=== PATIENT | male | born 1955 | race Caucasian/White ===

== ENCOUNTER 2016-07-20 09:06 | Outpatient (RCR) | payer BC | END 2016-10-18 | disposition still patient (30) | LOC: WSC | DX: M50.00 Cervical disc disorder with myelopathy, unspecified cervical region (principal); Z74.09 Other reduced mobility; Z87.828 Personal history of other (healed) physical injury and trauma ==

== ENCOUNTER → 2017-01-05 | Outpatient (CLI) | payer BC | LOC: SUN.DIA 01-04 13:27 | DX: E11.9 Type 2 diabetes mellitus without complications (principal); E78.5 Hyperlipidemia, unspecified; I10 Essential (primary) hypertension; Z68.32 Body mass index [BMI] 32.0-32.9, adult; Z71.3 Dietary counseling and surveillance; Z87.891 Personal history of nicotine dependence | CPT/HCPCS: G0108 ==

== ENCOUNTER → 2017-02-16 | Outpatient (CLI) | payer BC | LOC: SUN.DIA 08:44 | DX: E11.9 Type 2 diabetes mellitus without complications (principal); E78.5 Hyperlipidemia, unspecified; I10 Essential (primary) hypertension; E66.9 Obesity, unspecified; Z68.32 Body mass index [BMI] 32.0-32.9, adult; Z71.3 Dietary counseling and surveillance; Z87.891 Personal history of nicotine dependence | CPT/HCPCS: G0108 ==

== ENCOUNTER → 2017-05-27 | Outpatient (CLI) | payer BC | LOC: SUN.DIA 04-01 13:25 | DX: E11.9 Type 2 diabetes mellitus without complications (principal); E78.5 Hyperlipidemia, unspecified; I10 Essential (primary) hypertension; E66.9 Obesity, unspecified; Z68.32 Body mass index [BMI] 32.0-32.9, adult; Z71.3 Dietary counseling and surveillance; Z87.891 Personal history of nicotine dependence | CPT/HCPCS: G0108 ==

== ENCOUNTER 2017-10-08 16:47 | Outpatient (RCR) | payer BC ==
[~2017-10-08] VITALS: Ht 193 cm; Wt 124.2 kg
[2017-10-08] MEDS ORDERED: CIALIS20 MG PO (17:01)
[2017-10-08] MEDS ORDERED: ZITHROMAX500 M2 PO (17:01)
[2017-10-08] MEDS ORDERED: NORVASC 5MG5 MG/TAB PO (17:01)
[2017-10-08] MEDS ORDERED: FLONASEALLERGY NS (17:02)
[2017-10-08] MEDS ORDERED: COZAAR100 MG PO (17:02)
[2017-10-08] MEDS ORDERED: ZYRTEC 10MG10 MG PO (17:02)
[2017-10-08] MEDS ORDERED: TOPROL XL 50MG50 MG PO (17:06)
[2017-10-08] MEDS ORDERED: GLUCOSAMINE MSM1 TAB PO (17:06)
[2017-10-08] MEDS ORDERED: GLUCOPHAGE XR500 M1 PO (17:06)
[2017-10-08] MEDS ORDERED: TRULICITY1.5 MG/0.5 SQ (17:07)
[2017-10-08] MEDS ORDERED: DEPO-TESTOS100 MG/ML IM (17:07)
[2017-10-08 17:17] VITALS: BP 140/71; PULSE 93; TEMP 98.8
== END 2017-10-08 17:18 | disposition home or self-care (01) ==
LOC: EUO 16:47
DX: J84.89 Other specified interstitial pulmonary diseases (principal)
CPT/HCPCS: J0696

== ENCOUNTER 2018-12-02 11:15 | Outpatient (RCR) | payer BC ==
[~2018-12-02 11:15] MED LIST: CIALIS20 MG PO; COZAAR100 MG PO; DEPO-TESTOS100 MG/ML IM; FLONASEALLERGY NS; GLUCOPHAGE XR500 M1 PO; GLUCOSAMINE MSM1 TAB PO; NORVASC 5MG5 MG/TAB PO; TOPROL XL 50MG50 MG PO; TRULICITY1.5 MG/0.5 SQ; ZITHROMAX500 M2 PO; ZYRTEC 10MG10 MG PO
== END 2018-12-05 15:28 | disposition home or self-care (01) ==
LOC: MKS.ESL.PT 11:15
DX: M51.37 Other intervertebral disc degeneration, lumbosacral region (principal)

== ENCOUNTER → 2018-12-29 | Outpatient (CLI) | payer BC | LOC: COL.RAD 07:24 | DX: L03.116 Cellulitis of left lower limb (principal) ==

== ENCOUNTER → 2019-08-10 | Outpatient (CLI) | payer BC ==
[~2019-08-10] MED LIST changes: +BASAGLAR K100 UNIT/1 SQ; +CLARITIN 1010 MG/TAB PO; +GLUCOPHAGE1000 MG PO; +GLUCOSAMINE & C1 CA2 PO; +IBU600 MG PO; +LOZOL 2.5M2.5 MG/TAB PO; +NORCO 325 MG-7.1 TAB PO; +NOVOLOG 100U100 U/M1 SQ
== END ==
LOC: DIA.ED 10:15
DX: E11.40 Type 2 diabetes mellitus with diabetic neuropathy, unspecified (principal); E66.8 Other obesity; Z79.84 Long term (current) use of oral hypoglycemic drugs; I10 Essential (primary) hypertension; E78.5 Hyperlipidemia, unspecified
CPT/HCPCS: G0108

== ENCOUNTER → 2019-08-17 | Outpatient (CLI) | payer BC | LOC: DIA.ED 08:14 | DX: E11.9 Type 2 diabetes mellitus without complications (principal) | CPT/HCPCS: G0108 ==

== ENCOUNTER → 2019-09-13 | Outpatient (CLI) | payer BC ==
[~2019-09-13] VITALS: Ht 193 cm; Wt 129.4 kg
[2019-09-13 13:47] VITALS: BP 161/88; PULSE 54
[2019-09-13 14:45] VITALS: BP 138/90; PULSE 76
== END ==
LOC: COL.RAD 13:00
DX: M51.36 Other intervertebral disc degeneration, lumbar region (principal); M51.27 Other intervertebral disc displacement, lumbosacral region; Z87.39 Personal history of other diseases of the musculoskeletal system and connective tissue
CPT/HCPCS: J3301

== ENCOUNTER → 2019-12-06 | Outpatient (CLI) | payer MEDICARE, OTHER ==
[~2019-12-06] VITALS: Ht 193 cm; Wt 117.0 kg
[~2019-12-06] MED LIST changes: +ELIQUIS 5MG PO
[2019-12-06 13:20] VITALS: BP 117/83; PULSE 50
[2019-12-06 14:25] VITALS: BP 110/67; PULSE 69
== END ==
LOC: COL.RAD 12:19
DX: M54.16 Radiculopathy, lumbar region (principal)
CPT/HCPCS: J3301

== ENCOUNTER 2020-01-02 07:01 | Day surgery (SDC) | payer MEDICARE, OTHER ==
[2020-01-02] VITALS (7 sets, daily range): BP systolic 100–110; BP diastolic 60–75; PULSE 60–77; TEMP 99
[~2020-01-02] VITALS: Ht 193 cm; Wt 114.7 kg
[2020-01-02 08:25] LABS: HEMATOCRIT 42.9 % (42.0-52.0); HEMOGLOBIN 14.7 g/dl (13.5-18.0); MEAN CELL VOLUME 80 fl (80.0-100.0); MEAN CORPUSCULAR HEMOGLOBIN 27 pg (27.0-31.0); MEAN CORPUSCULAR HGB CONC 34 g/dl (33.0-37.0); MEAN PLATELET VOLUME 9.4 fl (7.4-10.4); PLATELET COUNT 142 K/mm3 (130-400); RED BLOOD COUNT 5.37 M/mm3 (4.20-5.60); REDCELL DISTRIBUTION WIDTH-CV 13.2 % (11.5-14.5)
[2020-01-02 08:39] LABS: CALCIUM 9.2 mg/dL (8.4-10.2); CREATININE, serum 0.93 (0.66-1.25); MAGNESIUM 1.7 mg/dL (1.6-2.3); POTASSIUM 4.3 mmol/L (3.4-5.0)
[2020-01-02 08:57] LABS: INR 1.1 (0.8-3.0); PROTHROMBIN TIME 12.6 SECONDS (9.7-12.8)
[2020-01-02 09:00] LABS: PARTIAL THROMBOPLASTIN TIME 32.2 SECONDS (26.0-37.0)
[2020-01-02 09:08] LABS: THYROID STIMULATING HORMONE 2.85 uIU/mL (0.465-4.680)
--- NOTE | 2020-01-02 10:01 | NUR ---
REport given by Dotty NEWELL. Pt resting in bed. bedside. VSS
[2020-01-02] MEDS ORDERED: TAMBOCOR50 MG PO (10:16)
[2020-01-02] MEDS ORDERED: COZAAR 50MG50 MG/TAB PO (10:17)
[2020-01-02] MEDS ORDERED: TOPROL XL 50MG50 MG PO (10:18)
--- NOTE | 2020-01-02 11:02 | NUR ---
INT discontinued intact. Dr. Hammond in to see pt .
--- NOTE | 2020-01-02 12:19 | NUR ---
Discharge instructions given. Trasnferred to private car by kit
== END 2020-01-02 11:40 | disposition home or self-care (01) ==
LOC: COL.CAR 07:01
PROVIDERS: Internal Medicine Adult Congenital Heart Disease
DX: I48.92 Unspecified atrial flutter (principal); I08.1 Rheumatic disorders of both mitral and tricuspid valves; I95.9 Hypotension, unspecified; I10 Essential (primary) hypertension; E11.65 Type 2 diabetes mellitus with hyperglycemia; E11.42 Type 2 diabetes mellitus with diabetic polyneuropathy; E23.0 Hypopituitarism; N52.9 Male erectile dysfunction, unspecified; Z79.01 Long term (current) use of anticoagulants; Z79.51 Long term (current) use of inhaled steroids; Z79.4 Long term (current) use of insulin; Z88.2 Allergy status to sulfonamides; G47.33 Obstructive sleep apnea (adult) (pediatric); I48.91 Unspecified atrial fibrillation; M19.90 Unspecified osteoarthritis, unspecified site
CPT/HCPCS: J2704

== ENCOUNTER → 2020-06-25 | Outpatient (CLI) | payer MEDICARE, OTHER ==
[~2020-06-25] VITALS: Ht 193 cm; Wt 129.4 kg
[~2020-06-25] MED LIST changes: +CARDIZEM SR 60M60 MG PO; +COZAAR 50MG50 MG/TAB PO; +FOLIC ACID0.8 MG PO; +GLUCOSAMINE & C1 TAB PO; +MULTIVITAMIN200 MCG PO; +NEURONTIN600 MG/TAB PO; +NORCO 325 MG-51 TAB PO; +TAMBOCOR50 MG PO; +VITAMIN D31000 I1 PO; +[UNRECOGNIZED DRUG - CODE] PO
[2020-06-25 09:53] VITALS: BP 145/86; PULSE 79
[2020-06-25 11:05] VITALS: BP 130/77; PULSE 76
== END ==
LOC: COL.RAD 09:30
DX: M51.16 Intervertebral disc disorders with radiculopathy, lumbar region (principal)
CPT/HCPCS: J3301

== ENCOUNTER 2020-07-01 14:00 | Outpatient (RCR) | payer MEDICARE, OTHER ==
[~2020-07-01 14:00] MED LIST changes: -GLUCOSAMINE & C1 TAB PO
[2020-11-12] MEDS ORDERED: GLUCOSAMINE & C1 TAB PO (10:35)
== END 2020-07-03 | disposition still patient (30) ==
LOC: MKS.ESL.PT
DX: S46.192A Other injury of muscle, fascia and tendon of long head of biceps, left arm, initial encounter (principal); Z98.890 Other specified postprocedural states

== ENCOUNTER 2020-08-08 14:15 | Outpatient (RCR) | payer MEDICARE, OTHER ==
[2020-11-12] MEDS ORDERED: GLUCOSAMINE & C1 TAB PO (10:35)
== END 2020-10-15 | disposition home or self-care (01) ==
LOC: MKS.ESL.PT
DX: Z98.890 Other specified postprocedural states (principal)

== ENCOUNTER → 2020-11-13 | Outpatient (CLI) | payer MEDICARE, OTHER ==
--- NOTE | 2020-11-08 10:51 | NUR ---
INSTRUCTED TO STOP ELIQUISON 11/10 AND RESUME 11/14
[~2020-11-13] VITALS: Ht 193 cm; Wt 122.7 kg
[~2020-11-13] MED LIST changes: +GLUCOSAMINE & C1 TAB PO
[2020-11-13 12:27] VITALS: BP 118/41; PULSE 69; TEMP 98.7
[2020-11-13 13:45] VITALS: BP 125/74; PULSE 69
== END ==
LOC: COL.RAD 11:53
DX: M51.36 Other intervertebral disc degeneration, lumbar region (principal)
CPT/HCPCS: J3301

== ENCOUNTER → 2021-05-27 | Outpatient (CLI) | payer MEDICARE, OTHER | LOC: COL.RAD 09:08 | DX: M54.41 Lumbago with sciatica, right side (principal); R53.1 Weakness | CPT/HCPCS: J3301 ==

== ENCOUNTER → 2021-07-02 | Outpatient (CLI) | payer MEDICARE, OTHER | LOC: COL.RAD 08:32 | DX: M51.36 Other intervertebral disc degeneration, lumbar region (principal) | CPT/HCPCS: J3301 ==

== ENCOUNTER 2023-09-16 09:00 | Outpatient (RCR) | payer MEDICARE, OTHER | END 2023-09-19 | disposition home or self-care (01) | LOC: MKS.ESL.PT | DX: M51.16 Intervertebral disc disorders with radiculopathy, lumbar region (principal); M25.512 Pain in left shoulder; M25.561 Pain in right knee ==

== ENCOUNTER 2023-11-24 19:08 | Emergency (ER) | payer MEDICARE, OTHER ==
[~2023-11-24] VITALS: Ht 190.5 cm; Wt 122.7 kg
[2023-11-24 19:12] VITALS: TEMP 97.8
[2023-11-24 20:55] VITALS: BP 134/79; PULSE 70
== END 2023-11-24 20:55 | disposition home or self-care (01) ==
LOC: COL.ER 19:08
DX: S01.01XA Laceration without foreign body of scalp, initial encounter (principal); W20.8XXA Other cause of strike by thrown, projected or falling object, initial encounter; Y92.59 Other trade areas as the place of occurrence of the external cause